=== PATIENT | male | born 1960 | race Caucasian/White ===

== ENCOUNTER 2017-09-29 08:33 | Emergency (ER) | payer BC ==
[~2017-09-29] VITALS: Ht 172.7 cm; Wt 70.0 kg
[2017-09-29] MEDS ORDERED: ZOLP5TAB2 PO (08:42)
[2017-09-29 09:30] LABS: BASOPHILS % 0.6 % (0.0-2.0); EOSINOPHILS % 1.3 % (0.0-5.0); HEMATOCRIT. 47.8 % (42.0-52.0); HEMOGLOBIN. 16.3 g/dL (14.0-18.0); LYMPHOCYTES % 20.7 % (20.0-50.0); MEAN CORPUSCULAR HEMOGLOBIN 31.5 pg (28.0-32.0); MEAN CORPUSCULAR VOLUME 92.1 fL (80.0-94.0); MEAN PLATELET VOLUME 6.7 fl (7.4-10.4); MONOCYTES % 10.4 % (2.0-8.0); PLATELET 198 x1000/uL (130-400); RED BLOOD CELL COUNT 5.19 mill/uL (4.7-6.1)
[2017-09-29 09:35] LABS: INR 1.1; PROTHROMBIN TIME 11.1 sec (9.4-11.6)
[2017-09-29 09:39] LABS: CHLORIDE 104 mEq/L (98-107)
[2017-09-29 09:44] LABS: TROPONIN I < 0.02 ng/mL (0.00-0.04)
[2017-09-29 11:21] VITALS: BP 119/76
== END 2017-09-29 11:21 | disposition home or self-care (01) ==
LOC: ER 08:33
DX: F41.9 Anxiety disorder, unspecified (principal); R20.2 Paresthesia of skin
CPT/HCPCS: 36415; 71045; 80053; 83880; 84484; 85025; 85610; 93005; 99285